=== PATIENT | female | born 1960 | race American Indian/Alaskan Native ===

== ENCOUNTER 2017-01-16 14:44 | Outpatient (CLI) | payer MEDICARE ==
--- NOTE | 2017-01-16 16:06 | Ultrasound Report ---
LEFT DIGITAL DIAGNOSTIC MAMMOGRAM with CAD and LEFT BREAST ULTRASOUND: 01/16/17 14:44:00 CLINICAL: Breast cancer survivor status post left partial mastectomy with radiation therapy. Recent inflammatory process in the left breast. She has been on antibiotics since 01/10/17. COMPARISON:05/17/16 FINDINGS: The breast is predominantly fatty with a few scattered fibroglandular densities. The upper outer scar is less dense on both views and there is evidence of central fat necrosis with benign calcifications at the scar where there is a palpable marker. No mammographic finding in the left axilla at a second scar and palpable marker. No mass, architectural distortion or suspicious calcifications. Moderate skin thickening which is more pronounced than on the last exam. Ultrasound of the left breast (including all four quadrants and the retroareolar area) was performed. The previously identified shadowing postop seroma is smaller and measures 10 x 7 x 10 mm. It is located at 12 o'clock 6 cm from the nipple. No mass, cyst or suspicious shadowing. Ultrasound of the left axilla demonstrated no mass or lymph node. On physical exam, the left breast skin is reddened with a peau or d'orange appearance. The patient stated that her breast feels better and is less inflamed since she began antibiotics. IMPRESSION: Increased skin thickening of the left breast which is presumably a benign inflammatory process. No other suspicious finding. Benign fat necrosis with a slightly smaller seroma at the surgical scar. BI-RADS CATEGORY: 2 - - Benign RECOMMENDATION: Clinical followup to reevaluate the skin thickening. Recommend a bilateral diagnostic mammogram in April 2017 when she is due for screening of the right breast. ACR BI-RADS MAMMOGRAPHIC CODES: 0 = Needs additional imaging evaluation; 1 = Negative; 2 = Benign; 3 = Probably benign; 4 = Suspicious; 5 = Malignant; 6 = Known biopsy-proven malignancy COMMENT: 1. Dense breast tissue, i.e., adenosis, fibrocystic changes, etc., may obscure an underlying neoplasm. 2. Approximately 10% of cancers are not detected with mammography. 3. A negative mammography report should not delay biopsy if a clinically suspicious mass is present. COMMENT: Patient follow-up letters are generated by our [employer] application.
== END 2017-01-16 14:45 | disposition home or self-care (01) ==
LOC: SPVWC 14:44
PROVIDERS: ATTEND Internal Medicine Hematology & Oncology
DX: N64.1 Fat necrosis of breast (principal); N64.89 Other specified disorders of breast; Z85.3 Personal history of malignant neoplasm of breast; Z90.12 Acquired absence of left breast and nipple
CPT/HCPCS: 76641; G0206

== ENCOUNTER 2017-05-07 14:11 | Outpatient (CLI) | payer MEDICARE ==
--- NOTE | 2017-05-07 15:20 | Mammography Report ---
BILATERAL DIGITAL DIAGNOSTIC MAMMOGRAM WITH CAD : 05/07/17 14:11:00 CLINICAL: Breast cancer survivor status post left partial mastectomy and radiation therapy. We have followed a seroma in the left breast and she most recently was treated for an inflammatory process in the left breast. The patient states that the infection in the left breast has resolved. COMPARISON:01/16/17 left mammogram and 05/17/16 bilateral mammogram FINDINGS: The breasts are mostly fatty with a stable fibroglandular pattern. Stable left upper outer postsurgical scar with benign fat necrosis. No mass, suspicious architectural distortion or suspicious calcifications. IMPRESSION: No mammographic evidence of malignancy. BI-RADS CATEGORY: 2 -- Benign RECOMMENDATION: Routine mammographic screening in one year. COMMENT: Patient follow-up letters are generated via our [employer] application.
== END 2017-05-07 14:12 | disposition home or self-care (01) ==
LOC: SPVWC 14:11
PROVIDERS: ATTEND Internal Medicine Hematology & Oncology
DX: N64.89 Other specified disorders of breast (principal); Z85.3 Personal history of malignant neoplasm of breast; Z90.12 Acquired absence of left breast and nipple
CPT/HCPCS: 77066; G0204